=== PATIENT | female | born 1955 | race African-American/Black ===

== ENCOUNTER 2017-04-05 23:27 | Inpatient (IN) | payer MEDICARE ==
--- NOTE | ~2017-04-05 | CN ---
Consultation Report [facility] [address] [place]. [address] NAME: MOOSE GUERRERO : 57 STATUS : ADM IN [facility]#: [id number] AGE: 61 ADM/REG DATE : 04/06/17 MR#: [id number] REPORT SERV DATE: 04/06/17 DICTATED BY: CLYDE KAUFMAN DATE: 04/06/17 REPORT STATUS : Draft TRANSCRIBED BY: MODL DATE: 04/06/17 INPATIENT CONSULT NOTE DATE OF CONSULTATION: 04/06/2017 REASON FOR CONSULTATION: Left-sided colitis. HISTORY OF PRESENT ILLNESS: Ms. Guerrero is a very pleasant, 61-year-old, female with past medical history only of hypertension, hyperlipidemia, GERD, and prior CVA, who presented to the emergency department with reports of acute onset of lower abdominal pain with nausea, vomiting, and diarrhea. The patient states that she has problems with intermittent abdominal pains and also has black stool on occasion. No bright red blood per rectum. No blood in her stool with these episodes. The patient describes the pain as sharp and 10/10 at its worst. The patient has never undergone prior endoscopic evaluation either upper GI or colonoscopy. No family history of GI-related malignancy per her report. The patient denies taking significant amounts of NSAIDs, but does take hydrocodone at home. The patient states that she was feeling sweaty, but does not know if she was having a temperature at home. In the emergency department, the patient was noted to have a white count of almost 15,000, and CT scan with an area of focal colitis in the descending colon, stretching up into the splenic flexure, no other significant abnormalities or laboratory results. The patient was admitted for further evaluation and care and was started on Levaquin and Flagyl. REVIEW OF SYSTEMS: All systems were reviewed and were negative aside from what was mentioned in the history of present illness. PAST MEDICAL HISTORY: Includes: 1. Type 2 diabetes mellitus. 2. Hypertension. 3. Hyperlipidemia. 4. Gastroesophageal reflux. 5. Anxiety. 6. History of CVA. 7. Obstructive sleep apnea, on CPAP therapy at home. 8. Status post cholecystectomy. 9. Status post hysterectomy. 10.Status post bilateral total knee replacement. FAMILY HISTORY: The patient does have a significant family history of colon cancer in both her mother and sibling. SOCIAL HISTORY: The patient denies alcohol, tobacco, or illicit substance use. Consultation Report [facility] [address] [place]. [address] NAME: MOOSE GUERRERO : 57 STATUS : ADM IN PAT#: [id number] AGE: 61 ADM/REG DATE : 04/06/17 MR#: [id number] REPORT SERV DATE: 04/06/17 DICTATED BY: CLYDE KAUFMAN DATE: 04/06/17 REPORT STATUS : Draft TRANSCRIBED BY: ANDREA DATE: 04/06/17 ALLERGIES: THE PATIENT HAS ALLERGIES TO: 1. PENICILLINS. 2. CODEINE. OUTPATIENT MEDICATIONS: Include: 1. Lyrica. 2. [place]. 3. Prilosec. 4. Aspirin 325. 5. Glucophage. 6. Amaryl. 7. Norvasc. 8. Mobic. 9. Lisinopril/hydrochlorothiazide. 10.Zocor. PHYSICAL EXAMINATION: VITAL SIGNS: Most recent vital signs include temperature of 98.9 with a T-max of 98.9, pulse of 88, blood pressure is 158/72, and saturating 96% on room air. GENERAL INSPECTION: Reveals a middle-aged female, lying in bed, in no apparent distress. HEENT: Head is normocephalic and atraumatic with normal inspection of the oral mucosa and posterior pharynx. Sclerae nonicteric. Pupils are equal and round. NECK: Supple without lymphadenopathy. HEART: Rate is regular with normal S1, S2. LUNGS: Sounds are clear to auscultation bilaterally. ABDOMEN: Soft with mild tenderness to palpation on the left side. The patient has normoactive bowel sounds. EXTREMITIES: No cyanosis, clubbing, or edema. SKIN: No jaundice or rash. NEUROLOGIC: No gross motor deficits. She is alert and oriented. Mood and affect are appropriate. Judgment appears to be intact. LABORATORY STUDIES: Most recent laboratory results include CBC that demonstrates a white count of 15.0, hemoglobin of 11.7, and a platelet count of 245,000. Basic electrolyte panel was unremarkable aside from elevated glucose of 199, lactate was normal at 2.3. C. difficile assay demonstrated no evidence of C. difficile infection. DIAGNOSTIC STUDIES: CT of the abdomen and pelvis was reviewed personally by myself and showed evidence of inflammatory changes with bowel wall thickening in the descending colon, going up into the splenic flexure, no other significant abnormalities were seen. ASSESSMENT AND PLAN: Mrs. Guererro is a very pleasant, 61-year-old, female with no significant past medical history, although she does have a family history of colon cancer, who presents with acute onset abdominal pain, was found to have a left-sided Consultation Report [facility] [address] [address] NAME: MOOSE GUERRERO : 57 STATUS : ADM IN PAT#: [id number] AGE: 61 ADM/REG DATE : 04/06/17 MR#: [id number] REPORT SERV DATE: 04/06/17 DICTATED BY: CLYDE KAUFMAN DATE: 04/06/17 REPORT STATUS : Draft TRANSCRIBED BY: ANDREA DATE: 04/06/17 colitis. The patient's white count was elevated. Fecal leukocytes count is unknown at this point. The patient was started on antibiotics and feels somewhat better, but is still having discomfort over in her left side. We will send off further stool studies including fecal leukocytes and ova and parasite exam as well as stool culture. We will also send inflammatory markers for evaluation of CRP and sedimentation rate. We would also recommend endoscopic evaluation with colonoscopy tomorrow for direct visualization of biopsies of the area in question. In the meantime, we would continue treatment with dual-antibiotic therapy, and we would allow the patient to have a clear liquid diet. Thank you very much for this interesting consult. Please call with any questions or concerns you might have. We will continue to follow along with you. YOLIS/ANDREA Clyde Kaufman MD / [id number] CC: Manan Velásquez II, MD NO PCP
--- NOTE | ~2017-04-05 | EGD ---
EGD REPORT [facility] [address] [address] NAME: MOOSE GUERRERO COOK : 57 STATUS : ADM IN PAT#: [id number] AGE: 61 ADM/REG DATE : 04/06/17 MR#: [id number] REPORT SERV DATE: 04/07/17 DICTATED BY: CLYDE KAUFMAN DATE: 04/07/17 REPORT STATUS : Draft TRANSCRIBED BY: [facility] DATE: 04/07/17 Endoscopy Center Patient Name: Moose Guerrero Date of : 1955 Attending MD: CLYDE KAUFMAN MD Procedure Date No Time: 04/07/2017 Procedure: Colonoscopy Indications: Lower abdominal pain, Abnormal CT of the GI tract Medicines: Monitored Anesthesia Care Complications: No immediate complications. Estimated blood loss: Minimal. Procedure: Pre-Anesthesia Assessment: - ASA Grade Assessment: III - A patient with severe systemic disease. After I obtained informed consent, the scope was passed under direct vision. Throughout the procedure, the patient's blood pressure, pulse, and oxygen saturations were monitored continuously. The CF [id number] was introduced through the anus and advanced to the cecum, identified by appendiceal orifice and ileocecal valve. The colonoscopy was performed without difficulty. The patient tolerated the procedure well. The quality of the bowel preparation was adequate. Findings: The perianal and digital rectal examinations were normal. Pertinent negatives include no palpable rectal lesions. Diffuse severe inflammation characterized by congestion (edema), erythema, friability and confluent ulcerations was found from 30 to 50 cm proximal to the anus. Biopsies were taken with a cold forceps for histology. Estimated blood loss was minimal. The exam was otherwise without abnormality on direct and retroflexion views. Impression: - Diffuse severe inflammation was found from 30 to 50 cm proximal to the anus, consistent with infectious colitis, rule out inflammatory bowel disease and rule out ischemic colitis (second most likely possibility). Biopsied. - The examination was otherwise normal on direct and retroflexion views. Recommendation: - Return patient to hospital park for ongoing care. - Clear liquid diet today. - Await pathology results. EGD REPORT [address] [address] NAME: MOOSE GUERRERO : 57 STATUS : ADM IN [facility]#: [id number] AGE: 61 ADM/REG DATE : 04/06/17 MR#: [id number] REPORT SERV DATE: 04/07/17 DICTATED BY: CLYDE KAUFMAN DATE: 04/07/17 REPORT STATUS : Draft TRANSCRIBED BY: [employer] DATE: 04/07/17 - Levaquin (levofloxacin) 500 mg IV daily for 10 days. - Flagyl (metronidazole) 500 mg IV q 8 hr for 10 days. Procedure Code(s): --- Professional --- 22772, Colonoscopy, flexible, proximal to splenic flexure; with biopsy, single or multiple Diagnosis Code(s): --- Professional --- K52.9, Noninfective gastroenteritis and colitis, unspecified R10.30, Lower abdominal pain, unspecified R93.3, Abnormal findings on diagnostic imaging of other parts of digestive tract CPT copyright 2013 [employer]. All rights reserved. The codes documented in this report are preliminary and upon remote inpatient coder review may be revised to meet current compliance requirements. Clyde aKufman MD CLYDE KAUFMAN MD 04/07/2017 8:14 AM This report has been signed electronically. Number of Addenda: 0 Note Initiated On: 04/07/2017 7:13 AM Scope Withdrawal Time 1 hour 39 minutes 11 seconds [address] [place] [address]
--- NOTE | ~2017-04-05 | HP ---
History And Physical [id number] [facility] [place]. [address] NAME: MOOSE GUERRERO : 57 STATUS : ADM IN [facility]#: [id number] AGE: 61 ADM/REG DATE : 04/06/17 MR#: [id number] REPORT SERV DATE: 04/06/17 DICTATED BY: JANET OGDEN DATE: 04/06/17 REPORT STATUS : Draft TRANSCRIBED BY: MODJj DATE: 04/06/17 DATE OF ADMISSION: 04/06/2017 POINT OF ENTRY: [facility] Emergency Department. PRIMARY CARE PHYSICIAN: [facility]. CHIEF COMPLAINT: Abdominal pain, nausea, vomiting, and diarrhea. HISTORY OF PRESENT ILLNESS: Ms Guerrero is a 61-year-old female with a history of hypertension, hyperlipidemia, gastroesophageal reflux disease as well as a prior history of cerebrovascular accident, who presents to the emergency department with reports of acute onset of bilateral lower quadrant abdominal pain with associated nausea, vomiting, and diarrhea. The patient states that she has had troubles with abdominal pain on and off, but has not thought much about it nor pursued any formal evaluation. Beginning early this morning she started to develop very severe sharp stabbing bilateral lower quadrant abdominal pain with associated nausea, vomiting, as well as profuse diarrhea. The patient also states that she had diaphoresis, but did not check her temperature. The patient states that she has had troubles for the past year with black tarry stools as well as some recent troubles with what sounds to be like hematochezia. She states that she was supposed to see a GI doctor for a colonoscopy, but has failed to do so, so far. The patient also reports that today she had an episode of hypoglycemia where reportedly her blood sugar read low on her glucometer, was given some peanut butter with improvement of blood sugars. Initial evaluation in the emergency department [place] [address]. Lactic acid is mildly elevated at 2.7. CT of the abdomen and pelvis showed a focal area of colonic inflammation in the descending colon concerning for infectious colitis versus inflammation, and her blood sugar at this time is 198, the patient was subsequently admitted to the Hospitalist Service for further evaluation and management. The patient denies any fevers, chest pain, palpitations, shortness of breath, cough, sputum production, dysuria or lower extremity edema. Comprehensive review of system otherwise negative unless listed in history of present illness. PREVIOUS MEDICAL HISTORY: 1. Nyk-ysdnrim-hideakwyg diabetes mellitus type 2. 2. Hypertension. 3. Hyperlipidemia. 4. Gastroesophageal reflux disease. 5. Anxiety. History And Physical [address] [address] NAME: MOOSE GUERRERO : [birth year] STATUS : ADM IN [facility]#: [id number] AGE: 61 ADM/REG DATE : 04/06/17 MR#: [id number] REPORT SERV DATE: 04/06/17 DICTATED BY: JANET OGDEN DATE: 04/06/17 REPORT STATUS : Draft TRANSCRIBED BY: ANDREA DATE: 04/06/17 6. History of stroke. 7. Obstructive sleep apnea, on CPAP therapy. SURGICAL HISTORY: 1. Cholecystectomy. 2. Abdominal hysterectomy. 3. ACDF. 4. Bilateral total knee with revision. ALLERGIES: TO PENICILLIN AND CODEINE. HOME MEDICATIONS: 1. Amlodipine 10 mg b.i.d. 2. Aspirin 325 mg daily. 3. Glimepiride 2 mg daily. 4. [place] 7.5/325 mg one tablet q.i.d. 5. Lisinopril/hydrochlorothiazide 20/25 mg one tablet b.i.d. 6. Meloxicam 7.5 mg daily. 7. Metformin 1000 mg b.i.d. 8. Omeprazole 20 mg daily. 9. Lyrica 100 mg t.i.d. 10.Simvastatin 10 mg daily. SOCIAL HISTORY: Denies any tobacco, alcohol, or illicits. FAMILY HISTORY: Mother with colon cancer. Father with coronary artery disease. Siblings with colon cancer and coronary artery disease. LABS AND IMAGIN. White count is 14,700, hemoglobin is 12.6, hematocrit is 39.2, and platelet count is 269 with a left shift. 2. Sodium is 143, potassium is 3.2, chloride is 105, carbon dioxide is 29, BUN is 18, creatinine is 0.96, glucose is 198, calcium is 9.5, protein is 7.9, albumin is 3.6, bilirubin is 0.7, ALT is 31, AST is 16, and alkaline phosphatase is 105. 3. Lactic acid is 2.7. 4. Lipase is 69. 5. Urinalysis: Spec gravity is 1.013, hazy with large leukocyte esterase, but only 3 white blood cells regular with [address] scan of the abdomen and pelvis per overnight virtual Radiology read shows a focal area of colonic inflammation in the descending colon concerning for infectious colitis versus inflammation. PHYSICAL EXAMINATION: VITAL SIGNS: Temperature is 98.9 degrees Fahrenheit, pulse is 79, respirations 14, saturating 92% on room air, and blood pressure is 187/84. On recheck, blood pressure is now 157/68, pulse is 64. GENERAL: The patient is awake and alert in some mild distress from abdominal pain, but she History And Physical [id number] [facility] [place]. [address] NAME: MOOSE GUERRERO : 57 STATUS : ADM IN [facility]#: [id number] AGE: 61 ADM/REG DATE : 04/06/17 MR#: [id number] REPORT SERV DATE: 04/06/17 DICTATED BY: JANET OGDEN DATE: 04/06/17 REPORT STATUS : Draft TRANSCRIBED BY: ANDREA DATE: 04/06/17 is otherwise a well-developed, well-nourished, female. HEENT: Atraumatic and normocephalic. Moist mucous membranes. Pupils equal, round, reactive to light and accommodation. Extraocular eye movements intact. No scleral icterus. NECK: No jugular venous distention. No carotid bruits. CARDIAC: Regular rate and rhythm. No murmurs or gallops. Normal S1, S2. LUNGS: Clear to auscultation bilaterally. No wheezes, rhonchi, or crackles. ABDOMEN: Soft. She is tender to palpation in bilateral lower quadrants, right greater than left, but no rebound, guarding, or rigidity. Hypoactive bowel sounds throughout. EXTREMITIES: Warm and perfused. No cyanosis, clubbing, or edema. SKIN: Warm and dry. PSYCH: Affect appropriate. NEURO: Alert and oriented x3. Cranial nerves 2 through 12 grossly intact. Speech is normal. Gait not assessed. ASSESSMENT AND PLAN: Ms Guerrero is a 61-year-old female who presents with a one-day history of severe bilateral lower quadrant abdominal pain with associated nausea, vomiting, diarrhea, found to have evidence concerning for colitis. PROBLEM LIST: 1. Colitis. 2. Leukocytosis. 3. Hypoglycemia. 4. Hypertension. 5. Elevated lactic acid level. 6. Melena and hematochezia. 7. Hypokalemia. 8. History of qzv-etkgnua-lgtooqolk diabetes mellitus type 2. PLAN: 1. Colitis. We will treat empirically for infectious colitis with Levaquin and Flagyl. We will try to obtain stool cultures, C. diff, ova and parasites, as well as occult stool. GI consultation for assistance as well as supportive care with IV fluids, antiemetics, and pain control. 2. Leukocytosis likely secondary to colitis. Urinalysis is clear. We will check a chest x-ray as well as obtain a set of blood cultures. 3. Elevated lactic acid level, again likely secondary to colitis. We will recheck a lactic acid level in three hours, provide IV fluids as well as antibiotics. 4. Melena and hematochezia. The patient reports this sounds to be chronic issues with intermittent episodes of melena as well as a recent development of hematochezia, although she is a somewhat poor historian. We will hold her Mobic. Place her on PPI b.i.d. Check occult stool as well as consult Gastroenterology for assistance as it sounds as if she had previously been referred to GI in the past for need for colonoscopy. 5. Hypoglycemia. This seems to have resolved. Has blood sugars of 198. We will continue to monitor with use of low-dose sliding scale. Holding her oral hypoglycemics. Check hemoglobin A1c. 6. DVT prophylaxis. TEDs and SCDs given concern for bleeding. History And Physical [address] [place]. [address] NAME: MOOSE GUERRERO : 57 STATUS : ADM IN [facility]#: [id number] AGE: 61 ADM/REG DATE : 04/06/17 MR#: [id number] REPORT SERV DATE: 04/06/17 DICTATED BY: JANET OGDEN DATE: 04/06/17 REPORT STATUS : Draft TRANSCRIBED BY: ANDREA DATE: 04/06/17 CODE STATUS: The patient wishes to be full code. JERICHO/ANDREA Janet Ogden MD / [id number] CC: Sergio Poole M.D.
--- NOTE | ~2017-04-05 | EGD ---
EGD REPORT [facility] [address] [place] [address] NAME: MOOSE GUERRERO COOK : 57 STATUS : ADM IN PAT#: [id number] AGE: 61 ADM/REG DATE : 04/06/17 MR#: [id number] REPORT SERV DATE: 04/07/17 DICTATED BY: CLYDE KAUFMAN DATE: 04/07/17 REPORT STATUS : Draft TRANSCRIBED BY: [facility] DATE: 04/07/17 Endoscopy Center Patient Name: Moose Guerrero Date of : 1955 Attending MD: CLYDE KAUFMAN MD Procedure Date No Time: 04/07/2017 Procedure: Colonoscopy Indications: Lower abdominal pain, Abnormal CT of the GI tract Medicines: Monitored Anesthesia Care Complications: No immediate complications. Estimated blood loss: Minimal. Procedure: Pre-Anesthesia Assessment: - ASA Grade Assessment: III - A patient with severe systemic disease. After I obtained informed consent, the scope was passed under direct vision. Throughout the procedure, the patient's blood pressure, pulse, and oxygen saturations were monitored continuously. The CF [id number] was introduced through the anus and advanced to the cecum, identified by appendiceal orifice and ileocecal valve. The colonoscopy was performed without difficulty. The patient tolerated the procedure well. The quality of the bowel preparation was adequate. Findings: The perianal and digital rectal examinations were normal. Pertinent negatives include no palpable rectal lesions. Diffuse severe inflammation characterized by congestion (edema), erythema, friability and confluent ulcerations was found from 30 to 50 cm proximal to the anus. Biopsies were taken with a cold forceps for histology. Estimated blood loss was minimal. The exam was otherwise without abnormality on direct and retroflexion views. Impression: - Diffuse severe inflammation was found from 30 to 50 cm proximal to the anus, consistent with infectious colitis, rule out inflammatory bowel disease and rule out ischemic colitis (second most likely possibility). Biopsied. - The examination was otherwise normal on direct and retroflexion views. Recommendation: - Return patient to hospital park for ongoing care. - Clear liquid diet today. - Await pathology results. EGD REPORT [address] [address] NAME: MOOSE GUERRERO : 57 STATUS : ADM IN [facility]#: [id number] AGE: 61 ADM/REG DATE : 04/06/17 MR#: [id number] REPORT SERV DATE: 04/07/17 DICTATED BY: CLYDE KAUFMAN DATE: 04/07/17 REPORT STATUS : Draft TRANSCRIBED BY: [employer] DATE: 04/07/17 - Levaquin (levofloxacin) 500 mg IV daily for 10 days. - Flagyl (metronidazole) 500 mg IV q 8 hr for 10 days. Procedure Code(s): --- Professional --- 55199, Colonoscopy, flexible, proximal to splenic flexure; with biopsy, single or multiple Diagnosis Code(s): --- Professional --- K52.9, Noninfective gastroenteritis and colitis, unspecified R10.30, Lower abdominal pain, unspecified R93.3, Abnormal findings on diagnostic imaging of other parts of digestive tract CPT copyright 2013 [employer]. All rights reserved. The codes documented in this report are preliminary and upon precision market insights review may be revised to meet current compliance requirements. Clyde Kaufman MD CLYDE KAUFMAN MD 04/07/2017 8:14 AM This report has been signed electronically. Number of Addenda: 0 Note Initiated On: 04/07/2017 7:13 AM [address] [id number]
--- NOTE | ~2017-04-05 | DS ---
Discharge Summary [facility] [address] [place]. [address] NAME: MOOSE GUERRERO : 57 STATUS : DIS IN PAT#: [id number] AGE: 61 ADM/REG DATE : 04/06/17 MR#: [id number] REPORT SERV DATE: 04/10/17 DICTATED BY: JANET MCKEON II DATE: 04/09/17 REPORT STATUS : Draft TRANSCRIBED BY: MODL DATE: 04/09/17 ADMISSION DATE: 04/06/2017 DISCHARGE DATE: 04/09/2017 DISCHARGE DIAGNOSES: 1. Severe acute colitis. 2. Hematochezia. 3. Leukocytosis. 4. Mild lactic acidosis. 5. Diabetes mellitus type 2. 6. Hypertension. 7. History of chronic pain, on chronic NSAIDs and opiates, followed by pain management. 8. Electrolyte abnormalities. CONSULTS: Dr. De La Rosa and Dr. Botello with GI. PROCEDURES PERFORMED: Colonoscopy showing diffuse severe inflammation from 30-50 cm proximal to the anus, consistent with infectious colitis versus ischemic colitis. BRIEF HISTORY OF PRESENT ILLNESS: The patient is a 61-year-old female with the above history, who presented to [facility] due to abdominal pain, nausea, vomiting, and diarrhea. CT scan in the ER showed colitis in the descending colon. For detailed history and physical examination, please see Dr. Jones's note from 04/06/2017. HOSPITAL COURSE: After admission, the patient was placed on Levaquin and Flagyl and given aggressive IV fluids, pain control, and supportive care. GI was consulted and subsequently performed the above-mentioned colonoscopy showing severe colitis concerning for ischemic versus infectious. She did have a white count of 15 on admission, which has subsequently trended down now to 7. She still has some pain, some trace amounts of blood, but her hemoglobin is stabilized and currently at 11. She had a mildly elevated lactic acid of 2.7, which has trended down. Her vitals are otherwise stable and her diet is being advanced slowly. At this point, it will probably take some time for her pain to completely go away, but she is clinically stable for discharge. We will set up an appointment to follow with GI and follow up on biopsies that were taken. DISCHARGE MEDICATIONS: 1. Norvasc 10 mg p.o. daily. 2. [place] 7.5/325 mg p.o. four times a day. 3. Zestoretic one tablet p.o. b.i.d. 4. Prilosec 20 mg p.o. daily. 5. Lyrica 100 mg p.o. t.i.d. 6. Zocor 10 mg p.o. daily. 7. Levaquin 750 mg p.o. daily x6 days. 8. Flagyl 500 mg p.o. t.i.d. x6 days. 9. Metformin 1000 mg p.o. b.i.d. 10.Amaryl 2 mg p.o. daily. Discharge Summary [id number] [place]. [address] NAME: MOOSE GUERRERO : [birth year] STATUS : DIS IN PAT#: [id number] AGE: 61 ADM/REG DATE : 04/06/17 MR#: [id number] REPORT SERV DATE: 04/10/17 DICTATED BY: JANET MCKEON II DATE: 04/09/17 REPORT STATUS : Draft TRANSCRIBED BY: ANDREA DATE: 04/09/17 DISCHARGE INSTRUCTIONS: The patient will follow up with GI in two to four weeks. DICTATED BY: MD JUICE Cast II/ANDREA Janet Mckeon II, MD / [id number] CC: Janet Mckeon II, MD
[2017-04-05 20:12] LABS: BASOPHILS 0.1 %; BASOPHILS ABSOLUTE 0.02 10/3/uL (0.0-0.16); EOSINOPHILS 0.2 %; EOSINOPHILS ABSOLUTE 0.03 10/3/uL (0.0-0.53); HEMATOCRIT 39.2 % (36.0-48.0); HEMOGLOBIN 12.6 g/dL (12.0-16.0); IMMATURE GRANULOCYTES 0.3 %; IMMATURE GRANULOCYTES ABSOLUTE 0.05 10/3/uL (0.0-0.11); LYMPHOCYTES ABSOLUTE 0.88 10/3/uL (0.67-4.30); MEAN CORPUS HGB CONC 32.1 g/dL (32.0-36.0); MEAN CORPUSCULAR HEMOGLOB 26.7 pg (26.0-34.0); MEAN CORPUSCULAR VOLUME 83.1 fL (80-100); MEAN PLATELET VOLUME 10.2 fL (9.2-13.0); MONOCYTES 5.2 %; MONOCYTES ABSOLUTE 0.76 10/3/uL (0.21-1.20); NEUTROPHILS 88.2 %; NEUTROPHILS ABSOLUTE 12.92 10/3/uL (2.02-8.40); PLATELET COUNT 269 10/3/uL (150-400); RBC DISTRIBUTION WIDTH 14.7 % (12.0-16.0); RED CELL COUNT 4.72 10/6/uL (4.0-5.6)
[2017-04-05 20:13] LABS: ER CBC TAT 0 Hrs 12 Mins; MANUAL DIFF NO %; WHITE BLOOD CELLS 14.7 10/3/uL (4.5-10.5)
[2017-04-05 20:23] LABS: ASCORBIC ACID (UR NOT ORDER) NEG (NEG); BILIRUBIN, URINE NEGATIVE (NEG); ER URINALYSIS TAT 0 Hrs 22 Mins; KETONE, URINE NEGATIVE (NEG); LEUKOCYTE ESTERASE(NOT OR LARGE (NEG); NITRITE (URINE) NEG (NEG); WBC (NOT ORDERED) (RFLEX) 3 (0-5)
[2017-04-05 20:27] LABS: A/G RATIO 0.8 (0.7-1.9); ALBUMIN 3.6 G/DL (3.5-5.0); ALKALINE PHOSPHATASE 105 U/L (45-117); BUN (BLOOD UREA NITROGEN) 18 MG/DL (6-23); CALCIUM, SERUM 9.5 MG/DL (8.5-10.4); CHLORIDE, SERUM 105 MMOL/L (96-112); CO2 (CARBON DIOXIDE) 29 MMOL/L (24-34); CREATININE 0.96 MG/DL (0.55-1.02); GFR AFRICAN AMERICAN 75 ML/MIN (>=60); GFR NON AFRICAN AMERICAN 64 ML/MIN (>=60); GLOBULIN 4.3 G/DL (2.5-4.1); GLUCOSE, SERUM 198 MG/DL (60-99); POTASSIUM, SERUM 3.2 MMOL/L (3.5-5.3); SGOT(AST) 16 U/L (5-40); SGPT(ALT) 31 U/L (5-65); SODIUM, SERUM 143 MMOL/L (135-148); TOTAL BILIRUBIN 0.7 MG/DL (0-1.2); TOTAL PROTEIN 7.9 G/DL (6.0-8.5)
[~2017-04-05 23:27] MED LIST: ASA5GR PO; ASABAYER PO; ASAEC PO; BUFFERIN PO; CENTRUM TAB1 TAB PO; DARVOCET-N50 MG PO; GLUCOPHAGE1000 MG PO; GLUCOPHXR PO; GLUCOTROL5 PO; GLUCPH PO; JANUVIA100 MG PO; LYRICA50 PO; LYRICA75 PO; MICARDIS H80 MG/25 M PO; MOBIC7.5 PO; MULTIVITAMI1 PO; NEUR300 PO; NORV10 PO; NORV5 PO; PCET PO; PERCOCET1 TA4 PO; PRILO PO; ULTRAM50 PO; UNABLE TO RECALL MED; V5 PO; ZESTORETIC1 TA1 PO
[2017-04-06] MEDS ORDERED: LYRICA100 MG PO (01:00)
[2017-04-06] MEDS ORDERED: NORCO1 TAB PO (01:01)
[2017-04-06] MEDS ORDERED: ASA5GR PO (01:02)
[2017-04-06] MEDS ORDERED: GLUCOPHAGE1000 MG PO (01:02)
[2017-04-06] MEDS ORDERED: PRILO PO (01:02)
[2017-04-06] MEDS ORDERED: AMARYL2 PO (01:03)
[2017-04-06] MEDS ORDERED: NORV10 PO (01:04)
[2017-04-06] MEDS ORDERED: MOBIC7.5 PO (01:04)
[2017-04-06] MEDS ORDERED: ZESTORETIC1 TA1 PO (01:05)
[2017-04-06] MEDS ORDERED: ZOCOR10 PO (01:06)
[2017-04-06 08:35] LABS: BASOPHILS 0.1 %; BASOPHILS ABSOLUTE 0.01 10/3/uL (0.0-0.16); EOSINOPHILS 0.1 %; EOSINOPHILS ABSOLUTE 0.02 10/3/uL (0.0-0.53); HEMATOCRIT 36.1 % (36.0-48.0); HEMOGLOBIN 11.7 g/dL (12.0-16.0); IMMATURE GRANULOCYTES 0.4 %; IMMATURE GRANULOCYTES ABSOLUTE 0.06 10/3/uL (0.0-0.11); LYMPHOCYTES 8.2 %; LYMPHOCYTES ABSOLUTE 1.23 10/3/uL (0.67-4.30); MANUAL DIFF NO %; MEAN CORPUS HGB CONC 32.4 g/dL (32.0-36.0); MEAN CORPUSCULAR HEMOGLOB 26.7 pg (26.0-34.0); MEAN CORPUSCULAR VOLUME 82.4 fL (80-100); MONOCYTES 6.4 %; MONOCYTES ABSOLUTE 0.96 10/3/uL (0.21-1.20); NEUTROPHILS 84.8 %; NEUTROPHILS ABSOLUTE 12.76 10/3/uL (2.02-8.40); PLATELET COUNT 245 10/3/uL (150-400); RBC DISTRIBUTION WIDTH 14.8 % (12.0-16.0); RED CELL COUNT 4.38 10/6/uL (4.0-5.6)
[2017-04-06 08:47] LABS: CALCIUM, SERUM 8.8 MG/DL (8.5-10.4); CHLORIDE, SERUM 106 MMOL/L (96-112); CO2 (CARBON DIOXIDE) 30 MMOL/L (24-34); CREATININE 0.81 MG/DL (0.55-1.02); GFR AFRICAN AMERICAN 91 ML/MIN (>=60); GFR NON AFRICAN AMERICAN 79 ML/MIN (>=60); GLUCOSE, SERUM 199 MG/DL (60-99); POTASSIUM, SERUM 3.8 MMOL/L (3.5-5.3); SODIUM, SERUM 143 MMOL/L (135-148)
[2017-04-06 08:48] LABS: BUN (BLOOD UREA NITROGEN) 14 MG/DL (6-23)
[2017-04-07 09:26] LABS: BASOPHILS 0.1 %; BASOPHILS ABSOLUTE 0.01 10/3/uL (0.0-0.16); EOSINOPHILS 0.5 %; EOSINOPHILS ABSOLUTE 0.08 10/3/uL (0.0-0.53); HEMATOCRIT 35.3 % (36.0-48.0); HEMOGLOBIN 11.3 g/dL (12.0-16.0); IMMATURE GRANULOCYTES 0.3 %; IMMATURE GRANULOCYTES ABSOLUTE 0.04 10/3/uL (0.0-0.11); LYMPHOCYTES 12.3 %; LYMPHOCYTES ABSOLUTE 1.84 10/3/uL (0.67-4.30); MEAN CORPUSCULAR HEMOGLOB 26.6 pg (26.0-34.0); MEAN CORPUSCULAR VOLUME 83.1 fL (80-100); MEAN PLATELET VOLUME 9.9 fL (9.2-13.0); MONOCYTES 6.6 %; MONOCYTES ABSOLUTE 0.99 10/3/uL (0.21-1.20); NEUTROPHILS 80.2 %; NEUTROPHILS ABSOLUTE 12.06 10/3/uL (2.02-8.40); PLATELET COUNT 214 10/3/uL (150-400); RED CELL COUNT 4.25 10/6/uL (4.0-5.6)
[2017-04-07 09:27] LABS: MANUAL DIFF NO %
[2017-04-07 09:43] LABS: CALCIUM, SERUM 9.2 MG/DL (8.5-10.4); CHLORIDE, SERUM 105 MMOL/L (96-112); CO2 (CARBON DIOXIDE) 32 MMOL/L (24-34); GFR AFRICAN AMERICAN 109 ML/MIN (>=60); GFR NON AFRICAN AMERICAN 94 ML/MIN (>=60); GLUCOSE, SERUM 164 MG/DL (60-99); POTASSIUM, SERUM 3.4 MMOL/L (3.5-5.3); SODIUM, SERUM 141 MMOL/L (135-148)
[2017-04-07 10:01] LABS: BUN (BLOOD UREA NITROGEN) 8 MG/DL (6-23)
[2017-04-08 05:39] LABS: BASOPHILS 0.3 %; BASOPHILS ABSOLUTE 0.03 10/3/uL (0.0-0.16); EOSINOPHILS 1.4 %; EOSINOPHILS ABSOLUTE 0.15 10/3/uL (0.0-0.53); HEMOGLOBIN 10.5 g/dL (12.0-16.0); IMMATURE GRANULOCYTES 0.2 %; IMMATURE GRANULOCYTES ABSOLUTE 0.02 10/3/uL (0.0-0.11); LYMPHOCYTES 13.9 %; LYMPHOCYTES ABSOLUTE 1.45 10/3/uL (0.67-4.30); MEAN CORPUS HGB CONC 30.9 g/dL (32.0-36.0); MEAN CORPUSCULAR HEMOGLOB 25.9 pg (26.0-34.0); MEAN CORPUSCULAR VOLUME 83.7 fL (80-100); MEAN PLATELET VOLUME 9.9 fL (9.2-13.0); MONOCYTES 7.3 %; MONOCYTES ABSOLUTE 0.76 10/3/uL (0.21-1.20); NEUTROPHILS 76.9 %; NEUTROPHILS ABSOLUTE 8.05 10/3/uL (2.02-8.40); PLATELET COUNT 217 10/3/uL (150-400); RBC DISTRIBUTION WIDTH 15.3 % (12.0-16.0); RED CELL COUNT 4.06 10/6/uL (4.0-5.6); WHITE BLOOD CELLS 10.5 10/3/uL (4.5-10.5)
[2017-04-08 05:40] LABS: MANUAL DIFF NO %
[2017-04-09 06:39] LABS: BASOPHILS 0.3 %; BASOPHILS ABSOLUTE 0.02 10/3/uL (0.0-0.16); EOSINOPHILS 2.2 %; EOSINOPHILS ABSOLUTE 0.17 10/3/uL (0.0-0.53); HEMATOCRIT 35.2 % (36.0-48.0); IMMATURE GRANULOCYTES 0.4 %; IMMATURE GRANULOCYTES ABSOLUTE 0.03 10/3/uL (0.0-0.11); LYMPHOCYTES 21.1 %; LYMPHOCYTES ABSOLUTE 1.63 10/3/uL (0.67-4.30); MEAN CORPUS HGB CONC 31.3 g/dL (32.0-36.0); MEAN CORPUSCULAR VOLUME 83.2 fL (80-100); MEAN PLATELET VOLUME 9.8 fL (9.2-13.0); MONOCYTES 8.1 %; MONOCYTES ABSOLUTE 0.63 10/3/uL (0.21-1.20); NEUTROPHILS 67.9 %; NEUTROPHILS ABSOLUTE 5.26 10/3/uL (2.02-8.40); PLATELET COUNT 261 10/3/uL (150-400); RBC DISTRIBUTION WIDTH 14.9 % (12.0-16.0); RED CELL COUNT 4.23 10/6/uL (4.0-5.6); WHITE BLOOD CELLS 7.7 10/3/uL (4.5-10.5)
[2017-04-09 06:43] LABS: MANUAL DIFF NO %
[2017-06-01] MEDS ORDERED: FLAG500TAB PO (09:12)
== END 2017-04-09 11:53 | disposition home or self-care (01) | DRG 392 ==
LOC: ER 23:27 → 2SO 04-06 01:47
PROVIDERS: Emergency Medicine; Internal Medicine; Internal Medicine Gastroenterology
PROC: 0DBE8ZX Excision of Large Intestine, Via Natural or Artificial Opening Endoscopic, Diagnostic (ICD-10-PCS; principal; 2017-04-07 07:00)
DX: K52.9 Noninfective gastroenteritis and colitis, unspecified (principal); E87.2 Acidosis; Z99.81 Dependence on supplemental oxygen; R11.2 Nausea with vomiting, unspecified; R19.7 Diarrhea, unspecified; I10 Essential (primary) hypertension; E87.6 Hypokalemia; E78.5 Hyperlipidemia, unspecified; K21.9 Gastro-esophageal reflux disease without esophagitis; E11.9 Type 2 diabetes mellitus without complications; G47.33 Obstructive sleep apnea (adult) (pediatric); F41.9 Anxiety disorder, unspecified; Z86.73 Personal history of transient ischemic attack (TIA), and cerebral infarction without residual deficits; Z98.891 History of uterine scar from previous surgery; Z88.0 Allergy status to penicillin; Z88.5 Allergy status to narcotic agent; Z82.49 Family history of ischemic heart disease and other diseases of the circulatory system; Z80.0 Family history of malignant neoplasm of digestive organs
CPT/HCPCS: 71010; 74176; 80048; 80053; 81001; 82272; 82962; 83036; 83605; 83690; 85025; 85652; 86140; 87040; 87077; 87086; 87150; 87186; 87328; 87329; 87493; 87493-59; 88305; 93005; 96374; 96376; 99285; A9270-GY; C9113; J1170; J1956; J2405; J2550